=== PATIENT | male | born 1965 | race Caucasian/White ===

== ENCOUNTER 2016-12-02 06:19 | Day surgery (SDC) | payer SELFPAY ==
[2016-11-28 13:28] VITALS: BMI 31.5
[2016-12-02] MEDS ORDERED: ROCURONIUM BROMIDE 50 MG/5 ML VIAL ONE ×4 (06:41→10:03)
[2016-12-02] MEDS ORDERED: PROPOFOL 20 ML ONE ×3 (06:41→09:05)
[2016-12-02] MEDS ORDERED: SUCCINYLCHOLINE CHLORIDE 200 MG/10 ML VIAL ONE (06:41)
[2016-12-02] MEDS ORDERED: LIDOCAINE HCL 2% JELLY (5 ML/TUBE) ONE (06:42)
[2016-12-02] MEDS ORDERED: LIDOCAINE HCL/PF 2% SDV 5ML VIAL ONE (06:42)
[2016-12-02] MEDS ORDERED: HEPARIN NA (PORCINE) 5,000 UNITS/ML 1ML VIAL ONE (07:28)
[2016-12-02] MEDS ORDERED: BACITRACIN 30 GM TUBE TOPICAL OINTMENT ONE (07:47)
[2016-12-02] MEDS ORDERED: BUPIVACAINE HCL/PF 2.5 MG/ML - 30 ML VIAL IJ ONE (07:47)
[2016-12-02] MEDS ORDERED: LIDOCAINE 1%-EPI 1:100,000 30 ML MDV IJ ONE (07:47)
[2016-12-02] MEDS ORDERED: EPINEPHrine/PF 1 MG/1 ML (1:1,000) AMPULE ONE (07:47)
[2016-12-02] MEDS ORDERED: LIDOCAINE HCL 1%, 10 MG/ML (20ML VIAL) ONE (07:47)
[2016-12-02] MEDS ORDERED: MIDAZOLAM HCL 2 MG/2 ML SINGLE DOSE VIAL ONE (08:09)
[2016-12-02] MEDS ORDERED: HYDROmorphone HCL/PF 1 MG/ML VIAL (FOR PYXIS CHARGING ONLY) ONE ×5 (08:55→09:55)
[2016-12-02] MEDS ORDERED: ceFAZolin SODIUM 1 GM VIAL ONE ×2 (09:17)
[2016-12-02] MEDS ORDERED: HYDROCORTISONE SOD SUCCINATE 2 ML ONE (09:42)
[2016-12-02] MEDS ORDERED: NEOSTIGMINE METHYLSULFATE 0.5 MG/ML - 10 ML MDV ONE (10:04)
[2016-12-02] MEDS ORDERED: GLYCOPYRROLATE 0.2 MG/1 ML VIAL ONE (10:17)
[2016-12-02] MEDS ORDERED: ONDANSETRON 4 MG/2 ML VIAL ONE ×2 (10:18→10:19)
[2016-12-02] MEDS ORDERED: DESFLURANE GAS 240 ML BOTTLE IH ONE (11:01)
[2016-12-02] MEDS ORDERED: ONDANSETRON 4 MG/2 ML VIAL IVPB PRN (12:10)
[2016-12-02] MEDS ORDERED: LACTATED RINGERS SOLUTION 1,000 ML IV SCH (12:15)
[2016-12-02] MEDS ORDERED: morphine SULFATE/PF 30 MG/30 ML *PCA* DISP.SYRIN PCA SCH (12:15)
[2016-12-02] MEDS ORDERED: HYDROmorphone HCL CARPU-JECT 1 MG/1 ML DISP.SYRIN ONE (12:17)
--- NOTE | 2016-12-02 12:34 | SURG ---
Surgery Trouble Operator Note Trouble Operator: Cecilia Gibson PA-C Date of Service: 12/02/16 Diagnosis: panniculitis Procedure: panniculectomy, mini abdominoplasty, liposuction bilateral flanks I was present for the entirety of the operative procedure. For further detail, please refer to operative report. Visit type - Case Type Case Type: Scheduled Admission - Emergency Emergency Visit: No - New patient This patient is new to me today: Yes Date on this admission: 12/02/16 - Critical Care Critical Care patient: No
[2016-12-02] MEDS: HYDROmorphone HCL CARPU-JECT 1 MG/1 ML DISP.SYRIN IVPUSH ONE ×2 (12:35→15:30)
[2016-12-02] MEDS ORDERED: HYDROmorphone *PCA* 10MG/50ML DISP.SYRIN PCA SCH ×2 (13:00→13:01)
[2016-12-02] MEDS: CEFAZOLIN 1 GM/D5W 50 ML IVPB SCH ×2 (14:23→20:22)
[2016-12-02] MEDS: INSULIN SLIDING SCALE (NOVOLOG) 1 VIAL SQ SCH (17:46)
--- NOTE | 2016-12-02 18:04 | OP ---
DATE OF OPERATION: 12/02/2016 PROCEDURE: Panniculectomy with flank liposuction PREOPERATIVE DIAGNOSIS: Panniculitis status post massive weight loss. POSTOPERATIVE DIAGNOSIS: Panniculitis status post massive weight loss. ATTENDING PHYSICIAN: Tyson Somers MD SPECIFICATION WRITER: , Physician Supply Teacher : ANESTHESIA: General endotracheal anesthesia PROCEDURE: The patient was marked in the holding area, awake and aware of all incisions and resulting scars. Sequential compression stockings were applied. Then 5000 units of subcutaneous heparin are administered preoperatively. Brought to the operating room. Position was carefully checked by surgical anesthesia teams. Prepped and draped in standard sterile surgical fashion. A timeout was called and patient procedure sites are verified. The procedure is as follows: An incision was made along the infra pannicular goiter and continued down to the level of the abdominal wall fascia. Dissection was then carried along the abdominal fascia to the level of the umbilicus. Umbilicus was then circumcised and developed on a fibrofatty stalk at the level of the abdominal wall. The dissection was continued for 10 cm cephalad of the umbilicus and short of the costal margins bilaterally. Hemostasis was meticulously achieved. Wounds were copiously irrigated with normal saline. The patient is then flexed to a 3rd degree flexed position where the abdominal flap is transposed, and closure is tailor-tacked to assure a lift of the mons pubis as well. This is marked. Skin excess is trimmed. Hemostasis once again achieved. The umbilicus is marked. Size 10 flat BERTHA drains are brought up through the lateral extent of the incision, secured with a 2-0 silk drain suture. The umbilicus is then brought through and oval defect in the abdominoplasty flap and secured with series of interrupted buried deep dermal 3-0 Monocryl suture followed by a running 4-0 Monocryl suture. Umbilicus is pink and viable after this portion of the procedure. The skin closure is then performed with series of interrupted Eamon's layer of 2-0 Vicryl suture, after which tumescent infiltration with wetting solution is then performed to the lateral flanks bilaterally, a total of 1 L per each flank. The wetting solution is a liter of normal saline, 1 ampoule of 1:1000 epinephrine and 20 mL of 1% lidocaine plain. After waiting 25 minutes for hemostatic effect of the wetting solution, liposuction was then performed with a 5-mm cannula. Liposuction aspirate is 1000 mL from the right flank and 800 mL from the left flank. End point is a smooth, even contour. The closure of the skin is then performed with a series of interrupted buried deep dermal 3-0 Monocryl suture followed by a running subcuticular 3-0 Monocryl suture. Wounds are dressed with 1/2-inch full-length Steri-Strips. Several 5-0 nylon sutures are used in separate locations. The umbilicus is dressed with bacitracin, Xeroform. ABD gauze, and an abdominal binder is applied. Patient is transferred to the recovery bed in a flexed position maintained. He tolerated the procedure well and placed on bulb suction. TYSON SOMERS M.D. [id number]
[2016-12-03] MEDS: CEFAZOLIN 1 GM/D5W 50 ML IVPB SCH ×2 (03:27→09:28)
[2016-12-03 06:24] VITALS: BP 125/67; PULSE 81; TEMP 98.7
[2016-12-03] MEDS: INSULIN SLIDING SCALE (NOVOLOG) 1 VIAL SQ SCH (06:54)
[2016-12-03] MEDS ORDERED: LEVOTHYROXINE NA 50 MCG TABLET (FP) PO SCH (07:00)
[2016-12-03] MEDS ORDERED: HEPARIN NA (PORCINE) 5,000 UNITS/ML 1ML VIAL SQ SCH (07:00)
[2016-12-03] MEDS ORDERED: OXYCODONE/APAP 5/325MG COMBO TABLET PO PRN (07:21)
[2016-12-03] MEDS ORDERED: LISINOPRIL 5 MG TABLET (FP) PO SCH (10:00)
--- NOTE | 2016-12-07 08:53 | PATH ---
Surgical Pathology Report Patient Name: GEORGE DELANEY [facility]. Rec. #: [id number] /Age/Gender: 1965 (Age: 51) / M Account: [id number] Location: [facility], [facility]–1983 AMBULATORY Taken: 12/02/2016 Received: 12/02/2016 Reported: 12/07/2016 Physicians: Tyson Obrien Specimen(s) Received ABDOMINAL SKIN AND TISSUE Clinical History Panniculitis Final Diagnosis SKIN AND SOFT TISSUE, ABDOMEN, EXCISION: UNREMARKABLE SKIN AND SUBCUTANEOUS ADIPOSE TISSUE. Electronically Signed Lázaro Lombardo M.D. Gross Description Received in formalin labeled "abdominal tissue and skin," is a 1988 g aggregate of 2 chang, triangular portions of skin with underlying soft tissue measuring 23.0 x 19.5 x 4.3 cm and 27.0 x 16.0 x 4.0 cm. Sectioning reveals unremarkable yellow, lobulated adipose tissue. No discrete lesions are identified. Environmental Studies Professor sections are submitted in 2 cassettes. /12/05/2016 [facility]12/05/2016
== END 2016-12-03 10:30 | disposition home or self-care (01) ==
LOC: FASU 06:19 → FM/S 12:10 → FASU 12-03 10:30
PROVIDERS: ATTEND Plastic Surgery
PROC: 0JB80ZZ Excision of Abdomen Subcutaneous Tissue and Fascia, Open Approach (ICD-10-PCS; principal; 2016-12-02 08:46)
PROC: 0J083ZZ Alteration of Abdomen Subcutaneous Tissue and Fascia, Percutaneous Approach (ICD-10-PCS; 2016-12-02 08:46)
DX: M79.3 Panniculitis, unspecified (principal); Z71.3 Dietary counseling and surveillance; Z68.31 Body mass index [BMI] 31.0-31.9, adult
CPT/HCPCS: 88304-TC; 94760; J1644